=== PATIENT | male | born 1960 | race Caucasian/White ===

== ENCOUNTER 2018-04-20 01:48 | Emergency (ER) | payer OTHER ==
--- NOTE | 2018-04-20 02:47 | PDOC ---
Attending Attestation - Resident Resident Name: Libertad Bahena - ED Attending Attestation I have performed the following: I have examined & evaluated the patient, The case was reviewed & discussed with the resident, I agree w/resident's findings & plan - HPI HPI: 04/20/18 04:19 Pt comes with epigastric pain. He was at a libertarian eating a lot of greasy food. However he is 50+ and he has DM and HTN and he has cardiac risk factors, so we will check cardiac workup. - Physicial Exam PE: 04/20/18 04:20 Agree with resident exam. - Medical Decision Making 04/20/18 04:20 Pt has normal CXR; all labs are normal. He will be asked to follow with his PMD and he will be encouraged to make healthier eating choices. 04/20/18 05:09 Referring Physician: SHAWANDA TEJEDA Patient Name: MANASA LINDO THIS IS A PRELIMINARY REPORT FROM [facility]AG[facility] [employer] [facility] DATE OF SERVICE: 2018-04-20 03:49:10 IMAGES: 2 EXAM: X-RAY CHEST Curvilinear radiopacity projecting over proximal right clavicle could represent artifact from vascular structures, but consider chest CT if there is concern for enlarged mediastinal lymph nodes or mass. No focal lung consolidation or pleural effusions. Cardiomediastinal silhouette unremarkable. THIS DOCUMENT HAS BEEN ELECTRONICALLY SIGNED 04/20/18 05:09 Pt made aware of the finding at the right clavicle. He can follow outpatient as needed. Heart Score/ECG Review - ECG Intrepretation Rhythm: Regular Rhythm - Creston Creston: Normal - P and UT Delta Wave(s) Present: No WPW: No - QRS Poor R Wave Progression: No Q Wave Present: No - ST and T Early Repolarization: No Non Specific ST-T Wave changes: No - ECG Impressions Normal ECG: Yes Non-specific ST Elevation: No Ischemic Changes: No Bradycardia: No Torsades tatiana Pointes: No
[2018-04-20] MEDS ORDERED: MAG HYDROX/AL HYDROX/SIMETH 30 ML UNIT-DOSE CUP PO ONE ×3 (02:49→04:49)
[2018-04-20] MEDS ORDERED: MAG HYDROX/AL HYDROX/SIMETH 30 ML UNIT-DOSE CUP ONE ×2 (02:51→04:51)
--- NOTE | 2018-04-20 02:51 | PDOC ---
History of Present Illness - General Chief Complaint: Nausea/Vomiting Stated Complaint: VOMITING/SOB Time Seen by Provider: 04/20/18 02:22 - History of Present Illness Initial Comments: Minesh Coto is a 57yo man with a PMH of GERD who presents with burning epigastric and retro sternal pain, nausea, and an episode of vomiting tonight. He reports that he was feeling well all day, and he went to a republican at a friend' s house in the evening. He states that they had spicy sausages with peppers, and he ate "a lot" at the republican. He went home and went to bed, but he woke up overnight and noted burning pain in his stomach and throat as well as sour taste in his mouth. He states that the pain was severe, so he presented to the ED. Mr Coto describes the pain as burning, nonradiating, and similar to his typical acid reflux. He takes ranitidine every morning at home for frequent heartburn and reflux but did not take anything additional tonight. He denies any additional symptoms associated with the burning pain and nausea, and he denies any sweating, lightheadedness, or shortness of breath. He does not have any other diagnosed medical conditions, cardiac disease, or take other medications at home. Past History - Past Medical History Allergies/Adverse Reactions: Allergies Allergy/AdvReac Type Severity Reaction Status Date / Time Penicillins Allergy Severe Verified 04/20/18 02:49 Review of Systems - Review of Systems Comments:: General: No fevers, no chills, no weight or appetite change, no malaise HEENT: No changes in vision, no changes in hearing, no congestion, no sore throat CV: No chest pain, no palpitations, no LE edema Pulm: No SOB, no cough, no wheezing GI: No nausea or vomiting, no change in bowel habits, no melena. +GERD : No frequency, no urgency, no dysuria Musc: No back pain, no joint swelling, no recent injury Skin: No rash, no lesions, no erythema Endo: No excessive thirst, no heat/cold intolerance Heme: No unusual bruising or bleeding, no swollen glands Neuro: No syncope, no numbness/tingling, no focal weakness Vasc: No claudication Psych: No recent change in mood, no SI or HI *Physical Exam - Physical Exam Comments: General: Uncomfortable but in no acute distress HEENT: PERRL, EOMI, MMM, voice normal, normal neck ROM, no LAD Cards: RRR, no murmur appreciated. No reproducible pain Pulm: Comfortable on room air, clear to auscultation bilaterally Abd: Soft, nondistended. Epigastric TTP. Ext: Atraumatic. No LE edema. ROM intact. Strength 5/5 and equal bilaterally Vasc: Extremities WWP. Skin: Normal color, no rashes or lesions Neuro: A&Ox3, CN grossly intact, normal speech, motor/sensory grossly intact and symmetric Psych: Mood appropriate to situation ED Treatment Course - LABORATORY CBC & Chemistry Diagram: 04/20/18 03:01 04/20/18 03:01 Medical Decision Making - Medical Decision Making 04/20/18 02:49 Minesh Coto is a 57yo man with a PMH of GERD who presents with symptoms of nausea, 1x vomiting, and burning epigastric and esophogeal pain after eating "a lot" of sausage at a republican this evening. - Most likely due to his known GERD. However, given age need to r/o ACS as a cause of epigastric pain and nausea. - CBC, chemistry, trop, EKG, CXR for evaluation - Maalox for symptoms 04/20/18 03:44 - Continued pain after Maalox. Pantoprazole IV ordered for symptoms as he already takes an H2 esperanza at home. - EKG completed; NSR without abnormalities noted 04/20/18 04:31 - Labs unremarkable. Troponin negative - CXR without consolidation, effusion, edema, or enlarged cardiac silhouette but RUL with questionable lesion. Sent to stitcher tape controlled machine radiology. - Feels significantly improved after pantoprazole, would like to be discharged. Discussed home care, bland diet, follow up with GI. Mr Coto understands and agrees. Will be called if follow up on xray is needed. Discussed with Dr Ovalles. Libertad Bahena PGY1 *DC/Admit/Observation/Transfer Diagnosis at time of Disposition: GERD (gastroesophageal reflux disease) - Discharge Dispostion Disposition: HOME Condition at time of disposition: Stable Decision to Admit order: No - Referrals Referrals: Jeffery Hale MD [Primary Care Provider] - Arias Carl MD [Staff Physician] - - Patient Instructions Printed Discharge Instructions: GERD Diet, DI for Gastroesophageal Reflux Disease (GERD) Additional Instructions: Discharge Instructions: - You were seen in the emergency department for heartburn and acid reflux. Your symptoms improved after several anti-acid medications. - Because of the location of your symptoms, you also had blood tests to check for abnormalities and an EKG and xray to check your heart and lungs. Your blood tests were all normal, and there is no sign of a heart problem. Your xray was sent to an online radiologist for review, and you will be called if there is anything abnormal. However, it was reviewed in the ER and there was no sign of infection or heart problems on the xray. - You should continue to take your ranitidine at home as prescribed by your regular doctor. If you have continued acid reflux symptoms, you may also buy a medication such as omeprazole on the shelf at the pharmacy, and this can be taken in the evenings. - Pay attention to which foods cause your acid reflux symptoms, and try to avoid these foods - Avoid spicy foods, greasy foods, dairy products, and caffeine for a few days until you are feeling better - You may need to use a few extra pillows or sleep sitting upright until your symptoms improve. - Make an appointment to follow up with Dr Carl within the next 1-2 weeks. - Seek immediate medical care if your symptoms worsen significantly, you have any chest pain or shortness of breath that does not feel like your heartburn ( especially if you also have sweating, vomiting, pain in your arms or jaw, or dizziness), you have vomiting of coffee-ground looking material, black tar-like stool, or severe abdominal pain. Instrucciones de descarga: - Usted fue atendido en el departamento de emergencias por acidez estomacal y reflujo cido. Jodi sntomas mejoraron despus de varios medicamentos anticidos. - Debido a la ubicacin de jodi sntomas, tambin se le realizaron anlisis de edison para detectar anomalas, y un ECG y gary radiografa para controlar villanueva corazn y pulmones. Todos jodi anlisis de edison fueron normales y no hay signos de un problema cardaco. Villanueva radiografa fue enviada a un radilogo en lnea para villanueva revisin, y se lo llamar si hay algo anormal. Sin embargo, se valentin en la starla de emergencias y no hubo signos de infeccin ni problemas cardacos en la radiografa. - Debe continuar tomando villanueva ranitidina en casa segn lo prescrito por villanueva mdico habitual. Si tiene sntomas de reflujo cido continuo, tambin puede comprar un medicamento wilton el omeprazol en el estante de la farmacia, que puede tomarse por las noches. - Preste atencin a los alimentos que causan los sntomas del reflujo cido y trate de evitarlos. - Evite los alimentos picantes, los alimentos grasosos, los productos lcteos y la cafena simi unos lassiter hasta que se sienta mejor. - Es posible que necesite usar algunas almohadas adicionales o dormir sentado en posicin vertical hasta que jodi sntomas mejoren. - Nicky gary ant para hacer un seguimiento con el Dr. Carl dentro de las prximas 1-2 semanas. - Busque atencin mdica inmediata si jodi sntomas empeoran significativamente, tiene dolor en el pecho o dificultad para respirar que no se siente wilton villanueva acidez estomacal (especialmente si tambin tiene sudoracin, vmitos, dolor en los brazos o la mandbula o mareos). vmitos de material con aspecto de caf molido, heces con aspecto de alquitrn yanely o dolor abdominal intenso. Print Language: STATELESS - Post Discharge Activity
[2018-04-20 03:23] LABS: BASO % 0.6 % (0-2.0); EOS % 2.1 % (0-4.5); HEMATOCRIT 39.2 % (35.4-49); HEMOGLOBIN 13.7 GM/dL (11.7-16.9); LYMPH % 26.7 % (8-40); MCH 30.4 pg (25.7-33.7); MCHC 34.9 g/dl (32.0-35.9); MEAN CELL VOLUME 87.1 fl (80-96); MEAN PLT VOLUME 9.6 fl (7.5-11.1); MONO % 8.6 % (3.8-10.2); PLATELET COUNT 268 K/MM3 (134-434); RDW 13.8 % (11.9-15.9)
[2018-04-20 03:29] VITALS: BP 144/90; PULSE 53; TEMP 99.8; BMI 35.0
[2018-04-20] MEDS ORDERED: PANTOPRAZOLE SODIUM 40 MG VIAL IVPUSH ONE (03:37)
[2018-04-20] MEDS ORDERED: PANTOPRAZOLE SODIUM 40 MG/100 ML BAG IVPB ONE (03:50)
[2018-04-20 03:54] LABS: ALBUMIN 3.6 g/dl (3.4-5.0); ALK PHOS 93 U/L (45-117); ANION GAP 7 MMOL/L (8-16); BILIRUBIN,TOTAL 0.4 mg/dL (0.2-1); BLOOD UREA NITROGEN 20 mg/dL (7-18); CALCIUM 8.3 mg/dL (8.5-10.1); CHLORIDE 108 mmol/L (98-107); CO2 25 mmol/L (21-32); GLUCOSE,RANDOM 121 mg/dL (74-106); MAGNESIUM 2.2 mg/dL (1.8-2.4); PHOSPHOROUS 4.3 mg/dL (2.5-4.9); POTASSIUM 4.4 mmol/L (3.5-5.1); SGOT/AST 25 U/L (15-37); SGPT/ALT 27 U/L (13-61); SODIUM 140 mmol/L (136-145); TOT PROT 7.1 g/dl (6.4-8.2)
--- NOTE | 2018-04-20 09:27 | EKG ---
Test Reason : Blood Pressure : / mmHG Vent. Rate : 073 BPM Atrial Rate : 073 BPM P-R Int : 148 ms QRS Dur : 094 ms QT Int : 372 ms P-R-T Axes : 021 028 008 degrees QTc Int : 409 ms NORMAL SINUS RHYTHM NORMAL ECG NO PREVIOUS ECGS AVAILABLE Confirmed by Christo Flaherty MD ([id number]) on 04/20/2018 9:27:00 AM Referred By: Confirmed By:Christo Flaherty MD
== END 2018-04-20 05:10 | disposition home or self-care (01) ==
LOC: JER 01:48
PROC: 3E033GC Introduction of Other Therapeutic Substance into Peripheral Vein, Percutaneous Approach (ICD-10-PCS; principal; 2018-04-20)
DX: K21.9 Gastro-esophageal reflux disease without esophagitis (principal)
CPT/HCPCS: 36415; 71046-TC-FY; 80053; 82550; 82553; 83735; 84100; 84484; 85025; 93005; 93010; 99283-25

== ENCOUNTER 2018-06-13 09:32 | Emergency (ER) | payer OTHER ==
[2018-06-13 09:45] VITALS: TEMP 98.5; BMI 34.9
[2018-06-13] MEDS ORDERED: SODIUM CHLORIDE 1,000 ML IV STA (11:10)
[2018-06-13] MEDS ORDERED: KETOROLAC TROMETHAMINE 30 MG/1 ML VIAL IVPUSH ONE (11:10)
[2018-06-13] MEDS ORDERED: ONDANSETRON 4 MG/2 ML VIAL IVPUSH ONE (11:10)
[2018-06-13] MEDS ORDERED: KETOROLAC TROMETHAMINE 30 MG/1 ML VIAL ONE (11:45)
[2018-06-13] MEDS ORDERED: ONDANSETRON 4 MG/2 ML VIAL ONE (11:45)
--- NOTE | 2018-06-13 12:15 | PDOC ---
History of Present Illness - General Chief Complaint: Pain, Acute Stated Complaint: ABD PAIN Time Seen by Provider: 06/13/18 10:35 History Source: Patient Exam Limitations: No Limitations - History of Present Illness Travel History: No Initial Comments: 06/13/18 12:15 57 y/o male presents to the ED with c/o abd pain since this am along with n/v d without fever, weakness, headache, cp, or sob. Pt with recent dx of diabetes and was placed on glucophage this week. Pt states does not have a glucometer at home and has no c/o dizziness, increased thirst or urination. Pt denies etoh abuse or recent travel. = Timing/Duration: reports: constant Quality: reports: mild, cramping Abdominal Pain Onset Location: reports: epigastric (lower), periumbilical, suprapubic Pain Radiation: reports: no radiation Activities at Onset: reports: none Aggravating Factors: improves with: None Alleviating Factors: improves with: None Past History - Travel Traveled outside of the country in the last 30 days: No Close contact w/someone who was outside of country & ill: No - Past Medical History Allergies/Adverse Reactions: Allergies Allergy/AdvReac Type Severity Reaction Status Date / Time Penicillins Allergy Severe Verified 06/13/18 09:40 Home Medications: Ambulatory Orders Metformin HCl [Glucophage] 500 mg PO BID 06/13/18 Ranitidine HCl [Zantac] 150 mg PO BID 06/13/18 levoFLOXacin [Levaquin] 750 mg PO DAILY #7 tab 06/13/18 metroNIDAZOLE [Flagyl -] 500 mg PO TID #21 tablet 06/13/18 COPD: No Diabetes: Yes - Immunization History Immunization Up to Date: Yes - Suicide/Smoking/Psychosocial Hx Smoking History: Never smoked Have you smoked in the past 12 months: No Information on smoking cessation initiated: No Hx Alcohol Use: No Drug/Substance Use Hx: No Patient Lives Alone: No Lives with/in: spouse/SO Review of Systems - Review of Systems Able to Perform ROS?: Yes Constitutional: Yes: Weakness HEENTM: No: Symptoms Reported Respiratory: No: Symptoms reported Cardiac (ROS): No: Symptoms Reported ABD/GI: Yes: Diarrhea, Nausea, Vomiting, Abdominal cramping : No: Symptoms Reported Musculoskeletal: No: Symptoms Reported Integumentary: No: Symptoms Reported Neurological: No: Symptoms reported *Physical Exam - Vital Signs Last Vital Signs Temp Pulse Resp BP Pulse Ox 98.5 F 102 H 16 115/80 96 06/13/18 09:42 06/13/18 09:42 06/13/18 09:42 06/13/18 09:42 06/13/18 09:42 - Physical Exam General Appearance: Yes: Nourished, Appropriately Dressed Neck: positive: Supple Respiratory/Chest: positive: Lungs Clear, Normal Breath Sounds. negative: Accessory Muscle Use Cardiovascular: positive: Regular Rhythm, Tachycardia. negative: Murmur Gastrointestinal/Abdominal: positive: Soft, Tenderness (suprapubic tenderness, periumbilical tenderness) Musculoskeletal: negative: CVA Tenderness Extremity: positive: Normal Capillary Refill Integumentary: positive: Normal Color, Warm, Moist Neurologic: positive: Motor Strength 5/5 (ambulatory) ED Treatment Course - LABORATORY CBC & Chemistry Diagram: 06/13/18 11:59 06/13/18 11:59 Medical Decision Making - Medical Decision Making 06/13/18 12:45 CC: n/v/d with abd cramping since awakening this am. Started Glucophage earlier this week] Exam: Tachy, No cvs tenderness, + lower periumbilical tenderness Plan: labs, ua, ivf, toradol, and zofran 06/13/18 13:59 Laboratory Tests 06/13/18 06/13/18 06/13/18 11:45 11:59 11:59 WBC 14.9 H Hgb 14.8 Hct 45.0 Absolute Neuts (auto) 12.8 H Neutrophils % 85.8 H D Lymphocytes % 7.4 L D Sodium 135 L Potassium 4.7 Chloride 103 Carbon Dioxide 25 Anion Gap 6 L BUN 18 Creatinine 0.9 Random Glucose 100 Calcium 9.4 Magnesium 2.2 Total Bilirubin 1.0 AST 16 ALT 24 Alkaline Phosphatase 103 Total Protein 8.8 H Albumin 4.3 Lipase 139 Urine Protein 2+ H Urine Glucose (UA) Negative Urine Ketones Negative Urine Blood 3+ H Urine Nitrite Negative Urine Bilirubin Negative Urine Urobilinogen 1.0 Ur Leukocyte Esterase Negative Urine WBC (Auto) 2 Urine RBC (Auto) 25 Urine Casts (Auto) 4 U Epithel Cells (Auto) 0.3 Urine Bacteria (Auto) 0.2 Acetone, Qual Negative 06/13/18 14:[address] Patient ordered for spiral CT. Patient states pain has resolved after being woke up from a nap. 06/13/18 15:34 No gallstones identified. Mild hepatomegaly and hepatic steatosis seen. There is no evidence of paper products inspector ureter nephrosis renal or ureter stone bilaterally. Diverticulosis coli with acute diverticulitis at the mid sigmoid level without extra luminal air or abscess formation. Mild to moderate dilatation of the proximal and mid small bowel loops measuring up to 3 cm with normal size distal small bowel loops. Differential diagnosis includes ileus due to presence of inflammation in the mid pelvis versus early to distal small bowel obstruction. Patient states has been having normal bowel movements. Patient be ordered for Levaquin and Flagyl. I will give an additional dose of analgesic. patient requesting to eat and otherwise is status feeling better. *DC/Admit/Observation/Transfer Diagnosis at time of Disposition: Diverticulitis - Discharge Dispostion Disposition: HOME Condition at time of disposition: Improved - Prescriptions Prescriptions: levoFLOXacin [Levaquin] 750 mg PO DAILY #7 tab metroNIDAZOLE [Flagyl -] 500 mg PO TID #21 tablet - Referrals Referrals: Jeffery Hale MD [Primary Care Provider] - Arias Carl MD [Staff Physician] - - Patient Instructions Printed Discharge Instructions: DI for Diverticulitis Additional Instructions: Take flagyl as prescribed starting tonight but start levaquin tomorrow morning. Please also consider following up with the reimbursement analyst. Return to emergency room if your symptoms worsen - Post Discharge Activity
[2018-06-13 12:17] LABS: BASO % 0.6 % (0-2.0); EOS % 0.7 % (0-4.5); HEMOGLOBIN 14.8 GM/dL (11.7-16.9); LYMPH % 7.4 % (8-40); MCH 28.8 pg (25.7-33.7); MCHC 32.9 g/dl (32.0-35.9); MEAN CELL VOLUME 87.6 fl (80-96); MEAN PLT VOLUME 9.9 fl (7.5-11.1); MONO % 5.5 % (3.8-10.2); NEUT % 85.8 % (42.8-82.8); PLATELET COUNT 295 K/MM3 (134-434); RBC 5.14 M/mm3 (4.00-5.60); RDW 13.8 % (11.9-15.9); WHITE BLOOD COUNT 14.9 K/mm3 (4.0-10.0)
[2018-06-13 12:20] LABS: EPI CELLS 0.3 /HPF (0-5); URINE APPEARANCE CLEAR; URINE BACTERIA 0.2 /hpf (NEGATIVE); URINE BILIRUBIN NEGATIVE (NEGATIVE); URINE CASTS 4 /hpf (0-8); URINE COLOR YELLOW; URINE GLUCOSE (UA) NEGATIVE (NEGATIVE); URINE KETONE NEGATIVE (NEGATIVE); URINE LEUK ESTERASE NEGATIVE (NEGATIVE); URINE NITRITE NEGATIVE (NEGATIVE); URINE PROTEIN 2+ (NEGATIVE); URINE RBC 25 /hpf (0-4); URINE WBC 2 /hpf (0-5)
[2018-06-13 12:49] LABS: ACETONE SERUM NEGATIVE (NEGATIVE)
[2018-06-13 12:50] LABS: ALBUMIN 4.3 g/dl (3.4-5.0); ALK PHOS 103 U/L (45-117); ANION GAP 6 MMOL/L (8-16); BLOOD UREA NITROGEN 18 mg/dL (7-18); CALCIUM 9.4 mg/dL (8.5-10.1); CHLORIDE 103 mmol/L (98-107); CO2 25 mmol/L (21-32); CREATININE 0.9 mg/dL (0.55-1.3); LIPASE 139 U/L (73-393); MAGNESIUM 2.2 mg/dL (1.8-2.4); POTASSIUM 4.7 mmol/L (3.5-5.1); SGOT/AST 16 U/L (15-37); SGPT/ALT 24 U/L (13-61); SODIUM 135 mmol/L (136-145); TOT PROT 8.8 g/dl (6.4-8.2)
[2018-06-13 13:02] LABS: GLUCOSE,RANDOM 100 mg/dL (74-106)
[2018-06-13] MEDS ORDERED: morphine CARPU-JECT 2 MG/1 ML DISP.SYRIN IVPUSH ONE (15:29)
[2018-06-13] MEDS ORDERED: morphine SULFATE 4 MG/ML VIAL ONE (16:33)
[2018-06-13 17:16] VITALS: BP 126/79; PULSE 84
== END 2018-06-13 18:04 | disposition home or self-care (01) ==
LOC: JER 09:32
PROC: 3E0337Z Introduction of Electrolytic and Water Balance Substance into Peripheral Vein, Percutaneous Approach (ICD-10-PCS; principal; 2018-06-13)
PROC: 3E03329 Introduction of Other Anti-infective into Peripheral Vein, Percutaneous Approach (ICD-10-PCS; 2018-06-13)
PROC: 3E03329 Introduction of Other Anti-infective into Peripheral Vein, Percutaneous Approach (ICD-10-PCS; 2018-06-13)
PROC: 3E033GC Introduction of Other Therapeutic Substance into Peripheral Vein, Percutaneous Approach (ICD-10-PCS; 2018-06-13)
PROC: 3E033NZ Introduction of Analgesics, Hypnotics, Sedatives into Peripheral Vein, Percutaneous Approach (ICD-10-PCS; 2018-06-13)
PROC: 3E0333Z Introduction of Anti-inflammatory into Peripheral Vein, Percutaneous Approach (ICD-10-PCS; 2018-06-13)
DX: K57.92 Diverticulitis of intestine, part unspecified, without perforation or abscess without bleeding (principal); E11.9 Type 2 diabetes mellitus without complications; Z79.84 Long term (current) use of oral hypoglycemic drugs
CPT/HCPCS: 36415; 74176-TC; 80053; 81003; 82009; 83690; 83735; 85025; 87086; 99282-25; J7030

== ENCOUNTER 2021-03-24 03:29 | Emergency (ER) | payer OTHER ==
[2021-03-24 04:08] VITALS: TEMP 97.6; BMI 35.4
[2021-03-24] MEDS ORDERED: morphine CARPU-JECT 4 MG/1 ML DISP.SYRIN IVPUSH ONE (04:32)
[2021-03-24] MEDS ORDERED: morphine SULFATE 4 MG/ML VIAL ONE (04:35)
[2021-03-24 04:52] VITALS: BP 152/92; PULSE 78
[2021-03-24] MEDS ORDERED: ePHEDrine SULFATE 50 MG/1 ML AMPULE IVPUSH ONE (04:53)
[2021-03-24] MEDS ORDERED: ePHEDrine SULFATE 50 MG/1 ML AMPULE ONE ×2 (04:56→05:29)
[2021-03-24 04:57] LABS: BASO % 0.7 % (0-2.0); EOS % 1.6 % (0-4.5); HEMATOCRIT 40.5 % (35.4-49); HEMOGLOBIN 13.8 GM/dL (11.7-16.9); LYMPH % 24.3 % (8-40); MCH 29.4 pg (25.7-33.7); MEAN CELL VOLUME 86.4 fl (80-96); MEAN PLT VOLUME 9.1 fl (7.5-11.1); MONO % 7.6 % (3.8-10.2); NEUT % 65.8 % (42.8-82.8); PLATELET COUNT 288 10^3/uL (134-434); RBC 4.69 M/mm3 (4.00-5.60); RDW 13.9 % (11.9-15.9); WHITE BLOOD COUNT 8.4 K/mm3 (4.0-10.0)
[2021-03-24] MEDS ORDERED: LIDOCAINE HCL 1%, 10 MG/ML (50 mL VIAL) INF ONE ×2 (05:01→05:04)
[2021-03-24] MEDS ORDERED: LIDOCAINE HCL 1%, 10 MG/ML (20ML VIAL) ONE (05:02)
[2021-03-24 05:05] LABS: INR 1.03 (0.83-1.09); PROTHROMBIN TIME (PATIENT) 11.9 SEC (9.7-13.0)
[2021-03-24 05:08] LABS: ACTIVATED PTT 30.7 SECONDS (25.2-36.5)
[2021-03-24 05:19] LABS: BLOOD UREA NITROGEN 22.5 mg/dL (7-18)
[2021-03-24 05:22] LABS: CREATININE 1.2 mg/dL (0.55-1.3)
[2021-03-24 05:24] LABS: BILIRUBIN,TOTAL 0.5 mg/dL (0.2-1); TOT PROT 7.8 g/dl (6.4-8.2)
== END 2021-03-24 07:30 | disposition home or self-care (01) ==
LOC: JER 03:29
PROC: 3E033NZ Introduction of Analgesics, Hypnotics, Sedatives into Peripheral Vein, Percutaneous Approach (ICD-10-PCS; principal; 2021-03-24)
PROC: 3E033GC Introduction of Other Therapeutic Substance into Peripheral Vein, Percutaneous Approach (ICD-10-PCS; 2021-03-24)
DX: N48.30 Priapism, unspecified (principal)
CPT/HCPCS: 36415; 80053; 85025; 85610; 85730; 86850; 86900; 86901; 99284-25